=== PATIENT | male | born 1985 | race Caucasian/White ===

== ENCOUNTER 2016-08-09 23:30 | Emergency (ER) | payer SELFPAY ==
[~2016-08-09] VITALS: Ht 175.3 cm; Wt 70.0 kg
[2016-08-09 23:31] VITALS: BP 132/81; PULSE 87; RESP 16; TEMP 98.4; O2SAT 100
--- NOTE | 2016-08-10 00:08 | PD ---
HPI Chief Complaint: Injury Time Seen by Provider: 00:00 Travel History International Travel<30 days: No Contact w/Intl Traveler<30days: No Traveled to known affect area: No History of Present Illness HPI 30-year-old male presents to the ER today, states that 3 days ago he had scratched his right knee on some barnacles and he started to have increased redness and swelling of the right knee area with lymph node palpable in the right thigh. He has not been feeling well but denies any actual fevers. He denies any chest pains, shortness of breath, or any other symptoms. Modifying Factors: None Associated Signs & Symptoms: Right knee wound, redness, pain Risk Factors: None PFSH Past Medical History Tetanus Vaccination: > 5 Years Social History Alcohol Use: No Tobacco Use: Yes Substance Use: Yes (methamphetamine IV) Allergies-Medications (Allergen,Severity, Reaction): Coded Allergies: No Known Allergies (Unverified , 08/09/16) Reported Meds & Prescriptions Reported Meds & Active Scripts Active No Active Prescriptions or Reported Medications Review of Systems Except as stated in HPI: all other systems reviewed are Neg Physical Exam Narrative GENERAL: Well-developed young white male patient currently in mild distress. Awake and oriented 3. SKIN: Focused skin assessment warm/dry. HEAD: Atraumatic. Normocephalic. EYES: Pupils equal and round. No scleral icterus. No injection or drainage. ENT: No nasal bleeding or discharge. Mucous membranes pink and moist. NECK: Trachea midline. No JVD. CARDIOVASCULAR: Regular rate and rhythm. No murmur appreciated. RESPIRATORY: No accessory muscle use. Clear to auscultation. Breath sounds equal bilaterally. GASTROINTESTINAL: Abdomen soft, non-tender, nondistended. Hepatic and splenic margins not palpable. MUSCULOSKELETAL: No obvious deformities. No clubbing. No cyanosis. No edema. EXTREMITIES: No clubbing, cyanosis, or edema. The right knee is notable for a small wound that appears to be draining a small amount of pus and is surrounded by significant prepatellar erythema and tenderness, not fluctuant there is notable tender lymphadenopathy going up the eye up to the right groin area. Nontender range of motion of the right knee with no significant tenderness on palpation of joint line. NEUROLOGICAL: Awake and alert. No obvious cranial nerve deficits. Motor grossly within normal limits. Normal speech. PSYCHIATRIC: Appropriate mood and affect; insight and judgment normal. Data Data Last Documented VS Vital Signs Date Time Temp Pulse Resp B/P Pulse Ox O2 Delivery O2 Flow Rate FiO2 08/09/16 23:31 98.4 87 16 132/81 100 Room Air Orders Complete Blood Count With Diff (08/10/16 00:00) Comprehensive Metabolic Panel (08/10/16 00:00) Lactic Acid Sepsis Protocol (08/10/16 00:00) Blood Culture (08/10/16 00:00) Blood Glucose (08/10/16 00:00) Ecg Monitoring (08/10/16 00:00) Iv Access Insert/Monitor (08/10/16 00:00) Oximetry (08/10/16 00:00) Oxygen Administration (08/10/16 00:00) Clindamycin Inj (Cleocin Inj) (08/10/16 00:00) Acetamin-Hydrocod 325-5 Mg ([place] 5-325 (08/10/16 00:45) Labs Laboratory Tests Test 08/10/16 00:10 White Blood Count 11.5 TH/MM3 Red Blood Count 4.45 MIL/MM3 Hemoglobin 12.7 GM/DL Hematocrit 37.1 % Mean Corpuscular Volume 83.5 FL Mean Corpuscular Hemoglobin 28.7 PG Mean Corpuscular Hemoglobin 34.3 % Concent Red Cell Distribution Width 13.4 % Platelet Count 362 TH/MM3 Mean Platelet Volume 7.1 FL Neutrophils (%) (Auto) 67.0 % Lymphocytes (%) (Auto) 19.7 % Monocytes (%) (Auto) 11.5 % Eosinophils (%) (Auto) 1.6 % Basophils (%) (Auto) 0.2 % Neutrophils # (Auto) 7.7 TH/MM3 Lymphocytes # (Auto) 2.3 TH/MM3 Monocytes # (Auto) 1.3 TH/MM3 Eosinophils # (Auto) 0.2 TH/MM3 Basophils # (Auto) 0.0 TH/MM3 CBC Comment DIFF FINAL Differential Comment Sodium Level 138 MEQ/L Potassium Level 3.9 MEQ/L Chloride Level 103 MEQ/L Carbon Dioxide Level 28.0 MEQ/L Anion Gap 7 MEQ/L Blood Urea Nitrogen 13 MG/DL Creatinine 0.95 MG/DL Estimat Glomerular Filtration 92 ML/MIN Rate Random Glucose 81 MG/DL Lactic Acid Level 1.9 mmol/L Calcium Level 8.7 MG/DL Total Bilirubin 0.5 MG/DL Aspartate Amino Transf 22 U/L (AST/SGOT) Alanine Aminotransferase 27 U/L (ALT/SGPT) Alkaline Phosphatase 81 U/L Total Protein 7.1 GM/DL Albumin 3.3 GM/DL MDM Medical Decision Making Medical Screen Exam Complete: Yes Emergency Medical Condition: Yes Medical Record Reviewed: Yes Interpretation(s) Laboratory Tests Test 08/10/16 00:10 White Blood Count 11.5 TH/MM3 (4.0-11.0) Red Blood Count 4.45 MIL/MM3 (4.50-5.90) Hemoglobin 12.7 GM/DL (13.0-17.0) Hematocrit 37.1 % (39.0-51.0) Monocytes (%) (Auto) 11.5 % (0.0-8.0) Monocytes # (Auto) 1.3 TH/MM3 (0-0.9) Albumin 3.3 GM/DL (3.4-5.0) Differential Diagnosis Cellulitis versus sepsis versus septic arthritis Narrative Course Lab work did not show significant metabolic issues. He does have some leukocytosis. At this point, patient had been given IV antibiotics and cultures have been done. He is afebrile the ER. My plan would be to give him further treatment for cellulitis and have him follow-up closely with primary care physician. Return for any worsening in redness, pain, fevers, or new symptoms as needed. The plan has been discussed with the patient and he states understanding. Diagnosis Primary Impression: Infection, wound status post trauma Med/Other Pt SpecificInfo: Prescription(s) given Scripts Ibuprofen (Motrin Ib)200 Mg [id number] Mg PO QID PRN (PAIN SCALE 1 TO 10) #20 Prov:Michell Uribe MD 08/10/16 Doxycycline Hyclate 100 Mg [id number] Mg PO BID #20 CAP Ref 0 Prov:Michell Uribe MD 08/10/16 Disposition: 01 DISCHARGE HOME Condition: Stable Michell Uribe MD Aug 10, 2016 00:08
[2016-08-10] MEDS: CLINDAMYCIN INJ 900 MG in SODIUM CHLORIDE 0.9% INJ 100 ML IV STA ×2 (00:20→00:51)
[2016-08-10 00:26] LABS: AUTOMATED NEUTROPHIL # 7.7 TH/MM3 (1.8-7.7); BASOPHIL % 0.2 % (0.0-2.0); EOSINOPHIL # 0.2 TH/MM3 (0-0.4); EOSINOPHIL % 1.6 % (0.0-4.0); HEMATOCRIT 37.1 % (39.0-51.0); HEMO FLAGS DIFF FINAL; LYMPH % 19.7 % (9.0-44.0); LYMPHOCYTE # 2.3 TH/MM3 (1.0-4.8); MEAN CELL VOLUME 83.5 FL (80.0-100.0); MEAN CORPUSCULAR HEMOGLOBIN 28.7 PG (27.0-34.0); MEAN CORPUSCULAR HGB CONC 34.3 % (32.0-36.0); MONO % 11.5 % (0.0-8.0); PLATELET COUNT 362 TH/MM3 (150-450); RED BLOOD COUNT 4.45 MIL/MM3 (4.50-5.90); RED CELL DISTRIBUTION WIDTH 13.4 % (11.6-17.2); WHITE BLOOD COUNT 11.5 TH/MM3 (4.0-11.0)
[2016-08-10] MEDS ORDERED: ACETAMINOPHEN/HYDROcodone 325 MG/5 MG TAB PO ONE (00:45)
[2016-08-10 01:11] LABS: ALT (GPT) 27 U/L (12-78); ANION GAP 7 MEQ/L (5-15); AST (GOT) 22 U/L (15-37); CHLORIDE 103 MEQ/L (98-107); GLOMERULAR FILTRATION RATE 92 ML/MIN (>89); POTASSIUM 3.9 MEQ/L (3.5-5.1); SODIUM (NA) 138 MEQ/L (136-145)
[2016-08-10 01:15] LABS: ALKALINE PHOSPHATASE 81 U/L (45-117); BLOOD UREA NITROGEN 13 MG/DL (7-18); TOTAL BILIRUBIN ADULT 0.5 MG/DL (0.2-1.0)
[2016-08-10] MEDS ORDERED: IBUP-1129 PO (01:31)
[2016-08-10] MEDS ORDERED: DOXY100C PO (01:31)
[2016-08-10 01:39] VITALS: O2SAT 99
== END 2016-08-10 02:00 | disposition home or self-care (01) ==
LOC: NEPE 23:30
DX: L08.9 Local infection of the skin and subcutaneous tissue, unspecified (principal); D72.829 Elevated white blood cell count, unspecified; Z72.0 Tobacco use
CPT/HCPCS: 80053; 83605; 85025; 87040; 96365; 99284

== ENCOUNTER 2016-09-02 11:07 | Observation (INO) | payer OTHER ==
[~2016-09-02] VITALS: Ht 172.7 cm; Wt 67.0 kg
[~2016-09-02 11:07] MED LIST: DOXY100C PO; IBUP-1129 PO
[2016-09-02 11:15] VITALS: BP 121/71
[2016-09-02 11:16] VITALS: BP 121/71; PULSE 77; RESP 16; TEMP 97.9; O2SAT 97
[2016-09-02 11:55] LABS: AUTOMATED NEUTROPHIL # 3.9 TH/MM3 (1.8-7.7); BASOPHIL % 0.5 % (0.0-2.0); EOSINOPHIL # 0.2 TH/MM3 (0-0.4); EOSINOPHIL % 2.5 % (0.0-4.0); HEMATOCRIT 37.8 % (39.0-51.0); HEMO FLAGS DIFF FINAL; LYMPH % 32.5 % (9.0-44.0); LYMPHOCYTE # 2.3 TH/MM3 (1.0-4.8); MEAN CELL VOLUME 84.7 FL (80.0-100.0); MEAN CORPUSCULAR HEMOGLOBIN 28.7 PG (27.0-34.0); MEAN CORPUSCULAR HGB CONC 33.9 % (32.0-36.0); MONO % 9.8 % (0.0-8.0); NEUT % 54.7 % (16.0-70.0); PLATELET COUNT 352 TH/MM3 (150-450); RED BLOOD COUNT 4.46 MIL/MM3 (4.50-5.90); WHITE BLOOD COUNT 7.1 TH/MM3 (4.0-11.0)
[2016-09-02 12:08] LABS: ANION GAP 6 MEQ/L (5-15); APTT (PATIENT) 23.3 SEC (24.3-30.1); BICARBONATE 25.5 MEQ/L (21.0-32.0); BLOOD UREA NITROGEN 16 MG/DL (7-18); CHLORIDE 107 MEQ/L (98-107); GLOMERULAR FILTRATION RATE 77 ML/MIN (>89); POTASSIUM 3.5 MEQ/L (3.5-5.1); PROTHROMBIN TIME - PATIENT 10.7 SEC (9.8-11.6); SODIUM (NA) 138 MEQ/L (136-145)
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
[2016-09-02] MEDS ORDERED: IOHEXOL 350 MG/ML 10 ML VIAL (for RAD DIAG) IV ONE (12:17)
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
[2016-09-02 12:25] VITALS: BP_SYST 115; BP_SYST 124; BP_DIAS 84; PULSE 72; RESP 16; O2SAT 99
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
[2016-09-02] MEDS ORDERED: ACETAMINOPHEN/HYDROcodone 325 MG/5 MG TAB PO ONE (13:30)
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
[2016-09-02 14:15] VITALS: BP 124/84; PULSE 89; RESP 15; O2SAT 98
[2016-09-02] MEDS ORDERED: LACTULOSE SYRUP 20 GM/30 ML CUP PO PRN (15:15)
[2016-09-02] MEDS ORDERED: ACETAMINOPHEN 325 MG TAB PO PRN (15:15)
[2016-09-02] MEDS ORDERED: NALOXONE HCL 0.4 MG/ML AMP IV PRN (15:15)
[2016-09-02] MEDS ORDERED: ONDANSETRON HCL 4 MG/2 ML VIAL IVP PRN (15:15)
[2016-09-02] MEDS ORDERED: SENNOSIDES 8.6 MG TAB PO PRN (15:15)
[2016-09-02] MEDS ORDERED: MAGNESIUM HYDROXIDE SUSP 30 ML CUP PO PRN (15:15)
[2016-09-02] MEDS ORDERED: BISACODYL 10 MG SUPP RECTAL PRN (15:15)
[2016-09-02] MEDS ORDERED: SODIUM CHLORIDE 0.9% FLUSH 10 ML FLUSH IV FLUSH PRN (15:15)
[2016-09-02 15:49] VITALS: BP 125/82; PULSE 74; RESP 17; O2SAT 98
[2016-09-02] MEDS ORDERED: ENOXAPARIN SODIUM 40 MG/0.4 ML SYRINGE SQ SCH (16:00)
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
[2016-09-02] MEDS ORDERED: SODIUM CHLOR 0.9% 1000 ML INJ 1,000 ML IV SCH (16:30)
[2016-09-02] MEDS ORDERED: DOCUSATE SODIUM 50 MG/SENNA 8.6 MG TAB PO SCH (21:00)
[2016-09-02] MEDS ORDERED: SODIUM CHLORIDE 0.9% FLUSH 10 ML FLUSH IV FLUSH SCH (21:00)
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
== END 2016-09-02 18:46 | disposition left against medical advice (07) ==
LOC: NEPE 11:07 → NEDA 14:55 → NEPGCP 17:11
PROVIDERS: ADMIT Family Medicine; ATTEND Family Medicine
DX: S92.001A Unspecified fracture of right calcaneus, initial encounter for closed fracture (principal); R41.82 Altered mental status, unspecified; S80.811A Abrasion, right lower leg, initial encounter; D18.03 Hemangioma of intra-abdominal structures; F15.10 Other stimulant abuse, uncomplicated; F17.200 Nicotine dependence, unspecified, uncomplicated; Z86.73 Personal history of transient ischemic attack (TIA), and cerebral infarction without residual deficits; V89.0XXA Person injured in unspecified motor-vehicle accident, nontraffic, initial encounter; Y92.410 Unspecified street and highway as the place of occurrence of the external cause
CPT/HCPCS: 29515; 70450; 71010; 71260; 72100; 72125; 73610; 73630; 74177; 80048; 80307; 83735; 85025; 85610; 85730; 99285; E0113; G0378; J1650; J7030; Q9967

== ENCOUNTER 2017-02-09 10:58 | Emergency (ER) | payer SELFPAY ==
[~2017-02-09] VITALS: Ht 172.7 cm; Wt 65.0 kg
[2017-02-09 10:59] VITALS: BP 130/74; PULSE 94; RESP 12; TEMP 99.1; O2SAT 99
[2017-02-09] MEDS ORDERED: MEDR4PAK PO (11:17)
[2017-02-09] MEDS ORDERED: BACT800T5 PO (11:17)
--- NOTE | 2017-02-09 11:17 | PD ---
HPI Chief Complaint: Cold / Flu Symptoms Time Seen by Provider: 11:08 Travel History International Travel<30 days: No Contact w/Intl Traveler<30days: No Traveled to known affect area: No History of Present Illness HPI 31-year-old male presents to the emergency department complaining of bilateral sinus pressure and pain for 2 days. Patient states that he has had a cough and cold like symptoms for approximately 1 week. Patient states he is not using medication to relieve his pain. Admits to congestion, clear rhinorrhea, nonproductive cough. States he has felt feverish on and off the last few days. Patient denies nausea vomiting or diarrhea. He has not been able to follow up primary care physician. Denies chronic medical issues or chronic medication use. Denies illicit or IV drug use. PFSH Past Medical History Asthma: No Blood Disorders: No Heart Rhythm Problems: No Cancer: No Cardiovascular Problems: No High Cholesterol: No Chemotherapy: No Congestive Heart Failure: No COPD: Yes Endocrine: No Musculoskeletal: No Neurologic: No Psychiatric: No Reproductive: No Respiratory: No Radiation Therapy: No Thyroid Disease: No Social History Alcohol Use: No Tobacco Use: Yes Substance Use: No (quit a couple weeks ago/ methamphetamine IV) Allergies-Medications (Allergen,Severity, Reaction): Coded Allergies: No Known Allergies (Unverified Adverse Reaction, Unknown, 02/09/17) Reported Meds & Prescriptions Reported Meds & Active Scripts Active Medrol Dosepak (Methylprednisolone) 4 Mg Dspk 4 Mg PO DIRECTED Per Pharmacist direction Bactrim DS (Sulfamethoxazole-Trimethoprim) 800-160 Mg Tab 1 Tab PO BID Review of Systems Except as stated in HPI: all other systems reviewed are Neg Physical Exam Narrative GENERAL: Well-nourished, well-developed patient. SKIN: Focused skin assessment warm/dry. HEAD: Normocephalic. EYES: No scleral icterus. No injection or drainage. Patient has TTP to eat more dense sphenoid sinus area. Clear rhinorrhea. NECK: Supple, trachea midline. No JVD or lymphadenopathy. Posterior pharynx with postnasal drip without tonsillar hypertrophy, erythema, or exudate. CARDIOVASCULAR: Regular rate and rhythm without murmurs, gallops, or rubs. RESPIRATORY: Breath sounds equal bilaterally. No accessory muscle use. GASTROINTESTINAL: Abdomen soft, non-tender, nondistended. MUSCULOSKELETAL: No cyanosis, or edema. BACK: Nontender without obvious deformity. No CVA tenderness. Data Data Last Documented VS Vital Signs Date Time Temp Pulse Resp B/P (MAP) Pulse Ox O2 Delivery O2 Flow Rate FiO2 02/09/17 11:40 02/09/17 10:59 99.1 94 12 99 Orders Orders Ed Discharge Order (02/09/17 11:18) MDM Medical Decision Making Medical Screen Exam Complete: Yes Emergency Medical Condition: Yes Differential Diagnosis Acute sinusitis, upper respiratory infection, flu Narrative Course 31-year-old male presents to the emergency department complaining of bilateral sinus pressure and pain for 2 days. Patient states that he has had a cough and cold like symptoms for approximately 1 week. Patient states he is not using medication to relieve his pain. Admits to congestion, clear rhinorrhea, nonproductive cough. States he has felt feverish on and off the last few days. Patient denies nausea vomiting or diarrhea. He has not been able to follow up primary care physician. Denies chronic medical issues or chronic medication use. Denies illicit or IV drug use. Vital signs stable. Physical exam findings consistent with sinusitis. Patient will be discharged with Medrol Dosepak and antibiotics. Add Claritin, Diana, or Zyrtec for possible allergic component to his infection. Advised follow-up with [facility] [place]. Advised to return to the emergency department for worsening or persistent symptoms. Diagnosis Primary Impression: Sinusitis Qualified Codes: J01.30 - Acute sphenoidal sinusitis, unspecified Referrals: [facility] Additional Instructions: Take all medication as prescribed. Use nasal sprays as discussed. He may also add Zyrtec, Claritin, or Diana for any allergic component to your sinusitis. Injury or have adequate fluid intake with nutritious diet. Scripts Methylprednisolone Dosepak (Medrol Dosepak) 4 Mg Dspk 4 MG PO DIRECTED, #1 DSPK 0 Refills Per Pharmacist direction Prov: Janine Stoner 02/09/17 Sulfamethoxazole-Trimethoprim (Bactrim DS) 800-160 Mg Tab 1 TAB PO BID for Infection, #20 TAB 0 Refills Prov: Janine Stoner 02/09/17 Disposition: 01 DISCHARGE HOME Condition: Stable Janine Stoner Feb 09, 2017 11:16
== END 2017-02-09 11:41 | disposition home or self-care (01) ==
LOC: NEPD 10:58
DX: J01.30 Acute sphenoidal sinusitis, unspecified (principal); Z72.0 Tobacco use
CPT/HCPCS: 99284